=== PATIENT | female | born 1975 | race Caucasian/White ===

== ENCOUNTER 2019-08-29 18:06 | Emergency (ER) | payer OTHER ==
[~2019-08-29] VITALS: Ht 160 cm; Wt 81.7 kg
[~2019-08-29 18:06] MED LIST: GRALISE300 MG PO; IBUPROFEN 800800 M1 PO; SKELAXIN 800 M800 MG PO; TRAZODONE 150150 M1 PO; ULTRAM 50MG TAB50 MG PO; VALIUM5 MG PO; ZOFRAN ODT4 MG PO
[2019-08-29] MEDS ORDERED: AUGMENTIN 875-1 EACH PO (19:07)
[2019-08-29 19:50] VITALS: BP 115/75
== END 2019-08-29 19:50 | disposition home or self-care (01) ==
LOC: ER 18:06
DX: S01.531A Puncture wound without foreign body of lip, initial encounter (principal); F17.210 Nicotine dependence, cigarettes, uncomplicated; F32.9 Major depressive disorder, single episode, unspecified; Z88.8 Allergy status to other drugs, medicaments and biological substances; Z88.1 Allergy status to other antibiotic agents; Z88.0 Allergy status to penicillin; W54.0XXA Bitten by dog, initial encounter; Y92.89 Other specified places as the place of occurrence of the external cause; Y93.89 Activity, other specified; Y99.8 Other external cause status